=== PATIENT | male | born 1965 | race Caucasian/White ===

== ENCOUNTER 2022-05-26 05:08 | Emergency (ER) | payer MEDICARE ==
[2022-05-26 05:17] VITALS: RESP 18; TEMP 98.1
[2022-05-26] MEDS ORDERED: KETOROLAC 15 MG/ML 1 ML VIAL IM STA (05:42)
--- NOTE | 2022-05-26 05:43 | ED ---
General Adult HPI - General Chief complaint: Dental/Oral Stated complaint: Jaw pain Time Seen by Provider: 05/26/22 05:17 Source: patient, RN notes reviewed, old records reviewed Mode of arrival: ambulatory Limitations: no limitations - History of Present Illness Initial comments: 57-year-old male presents for evaluation of right lower molar dental pain which is been present for the past several days. He states he has been following closely with a local dentist and is saving money currently for significant dental work. He states that he's had recurrent issues of dental pain which is secondary to dental infection and a malaligned jaw from prior injury. - Related Data Previous Rx's Medication Instructions Recorded Ibuprofen [Motrin] 800 mg PO Q8HR PRN #20 tab 11/07/15 Penicillin V Potassium [Pen Vee K] 500 mg PO QID #28 tab 11/07/15 Amoxic-Pot Clav 875-125Mg 1 tab PO BID 14 Days #28 tab 05/26/22 [Augmentin 875-125] Ibuprofen [Motrin] 600 mg PO Q8HR PRN #24 tab 05/26/22 Allergies Allergy/AdvReac Type Severity Reaction Status Date / Time meperidine HCl [From Demerol] Allergy Anaphylaxis Verified 11/07/15 04:50 Review of Systems ROS Statement: Those systems with pertinent positive or pertinent negative responses have been documented in the HPI. ROS Other: All systems not noted in ROS Statement are negative. Past Medical History Past Medical History: CVA/TIA Additional Past Medical History / Comment(s): cerebral palsy History of Any Multi-Drug Resistant Organisms: None Reported Past Surgical History: Orthopedic Surgery Past Psychological History: No Psychological Hx Reported Smoking Status: Never smoker Past Alcohol Use History: None Reported Past Drug Use History: None Reported General Exam Limitations: no limitations General appearance: alert, in no apparent distress Head exam: Present: atraumatic, normocephalic Eye exam: Present: normal appearance, PERRL ENT exam: Present: other (Poor dentition throughout ) Respiratory exam: Present: normal lung sounds bilaterally. Absent: respiratory distress, wheezes Course Vital Signs 05/26/22 05/26/22 05:14 06:37 Temperature 98.1 F Pulse Rate 92 116 H Respiratory 18 18 Rate Blood Pressure 134/80 O2 Sat by Pulse 98 97 Oximetry Medical Decision Making - Medical Decision Making Was pt. sent in by a medical professional or institution (MICHELLE Hernandez, SOCCER COACH, urgent care, hospital, or detention...) When possible be specific @ -No Did you speak to anyone other than the patient for history (EMS, parent, family, police, friend...)? What history was obtained from this source @ -No Did you review nursing and triage notes (agree or disagree)? Why? @ -I reviewed and agree with nursing and triage notes Were old charts reviewed (outside hosp., previous admission, EMS record, old EKG, old radiological studies, urgent care reports/EKG's, detention records)? Report findings @ -Previous ER visits Differential Diagnosis (chest pain, altered mental status, abdominal pain women, abdominal pain men, vaginal bleeding, weakness, fever, dyspnea, syncope, headache, dizziness, GI bleed, back pain, seizure, CVA, palpatations, mental health, musculoskeletal)? @ -Dental infection, pulpitis, dental abscess EKG interpreted by me (3pts min.). @ -As above X-rays interpreted by me (1pt min.). @ -None done CT interpreted by me (1pt min.). @ -None done U/S interpreted by me (1pt. min.). @ -None done What testing was considered but not performed or refused? (CT, X-rays, U/S, labs)? Why? @ -None What meds were considered but not given or refused? Why? @ -None Did you discuss the management of the patient with other professionals (professionals i.e. MICHELLE Hernandez, SOCCER COACH, lab, RT, psych nurse, social media sr strategy manager, anesthesiology faculty, teacher, network security officer, watch caser)? Give summary @ -No Was smoking cessation discussed for >3mins.? @ -No Was critical care preformed (if so, how long)? @ -No Were there social determinants of health that impacted care today? How? ( Homelessness, low income, unemployed, alcoholism, drug addiction, transportation, low edu. Level, literacy, decrease access to med. care, usp, rehab)? @ -No Was there de-escalation of care discussed even if they declined (Discuss DNR or withdrawal of care, Hospice)? DNR status @ -No What co-morbidities impacted this encounter? (DM, HTN, Smoking, COPD, CAD, Cancer, CVA, ARF, Chemo, Hep., AIDS, mental health diagnosis, sleep apnea, morbid obesity)? @ -Cerebral palsy Was patient admitted / discharged? Hospital course, mention meds given and route, prescriptions, significant lab abnormalities, going to OR and other pertinent info. @ -Patient started on pain medication and antibiotics. He does have follow-up with his dentist as an outpatient. Return parameters discussed Undiagnosed new problem with uncertain prognosis? @ -No Drug Therapy requiring intensive monitoring for toxicity (Heparin, Nitro, Insulin, Cardizem)? @ -No Were any procedures done? @ -No Diagnosis/symptom? @ -Dental infection Acute, or Chronic, or Acute on Chronic? @ -Acute on chronic Uncomplicated (without systemic symptoms) or Complicated (systemic symptoms)? @ -Complicated Disposition Clinical Impression: Dental abscess, Toothache Disposition: HOME SELF-CARE Condition: Fair Instructions (If sedation given, give patient instructions): Dental Abscess (ED), Toothache (ED) Additional Instructions: Please Follow up with your dentist Prescriptions: Amoxic-Pot Clav 875-125Mg [Augmentin 875-125] 1 tab PO BID 14 Days #28 tab Ibuprofen [Motrin] 600 mg PO Q8HR PRN #24 tab PRN Reason: Pain Is patient prescribed a controlled substance at d/c from ED?: No Referrals: None,Stated [Primary Care Provider] - 1-2 days Time of Disposition: 05:43
[2022-05-26 06:39] VITALS: BP 134/80
[2022-05-26 06:40] VITALS: PULSE 116
== END 2022-05-26 06:50 | disposition home or self-care (01) ==
LOC: EC 05:08
DX: K04.7 Periapical abscess without sinus (principal); Z86.73 Personal history of transient ischemic attack (TIA), and cerebral infarction without residual deficits; Z88.5 Allergy status to narcotic agent
CPT/HCPCS: 99284; 96372; J1885